=== PATIENT | male | born 1950 | race Caucasian/White ===

== ENCOUNTER 2022-12-24 09:43 | Day surgery (SDC) | payer MEDICARE ==
[2022-12-22 15:04] VITALS: BMI 41.1
[2022-12-24] MEDS ORDERED: CEFAZOLIN 2 GM VIAL ONE (10:57)
[2022-12-24] MEDS ORDERED: PROPOFOL 20 ML ONE (11:03)
[2022-12-24] MEDS ORDERED: fentaNYL 50 mcg/mL 1 mL Vial ONE ×2 (11:03→11:26)
[2022-12-24] MEDS ORDERED: ePHEDrine Sulfate 50 MG/10 ML VIAL ONE (11:30)
[2022-12-24] MEDS ORDERED: Ondansetron PF 4 MG/2 ML Vial ONE (11:44)
[2022-12-24] MEDS ORDERED: Dexamethasone 4 mg/ml Vial ONE (11:44)
== END 2022-12-24 14:10 | disposition home or self-care (01) ==
LOC: CSHSDC 09:43
PROVIDERS: ATTEND Podiatrist Foot & Ankle Surgery
PROC: 0SGM04Z Fusion of Right Metatarsal-Phalangeal Joint with Internal Fixation Device, Open Approach (ICD-10-PCS; principal; 2022-12-24)
DX: M20.11 Hallux valgus (acquired), right foot (principal); I48.91 Unspecified atrial fibrillation; I10 Essential (primary) hypertension; I26.99 Other pulmonary embolism without acute cor pulmonale; I82.402 Acute embolism and thrombosis of unspecified deep veins of left lower extremity; E66.9 Obesity, unspecified; M19.90 Unspecified osteoarthritis, unspecified site; M17.0 Bilateral primary osteoarthritis of knee; I73.9 Peripheral vascular disease, unspecified; I87.2 Venous insufficiency (chronic) (peripheral); E78.2 Mixed hyperlipidemia; Z68.41 Body mass index [BMI] 40.0-44.9, adult; Z79.01 Long term (current) use of anticoagulants; Z79.899 Other long term (current) drug therapy
CPT/HCPCS: 28750; 73630; C1713 ×5; J3010; J1100; J2405; J2704

== ENCOUNTER 2022-12-30 13:21 | Outpatient (CLI) | payer MEDICARE | END 2022-12-30 13:22 | disposition home or self-care (01) | LOC: CSHULT 13:21 | PROVIDERS: ATTEND Podiatrist Foot & Ankle Surgery | DX: I82.401 Acute embolism and thrombosis of unspecified deep veins of right lower extremity (principal) ==